=== PATIENT | female | born 1995 | race American Indian/Alaskan Native ===

== ENCOUNTER 2019-02-26 11:25 | Emergency (ER) | payer MEDICAID ==
[2019-02-26 11:33] VITALS: BP 135/84
--- NOTE | 2019-02-26 11:33 | Event Note ---
ED Screening Note ED Screening Note: LNMP dec 2nd states she is 10 weeks CERTIFIED [employer] at [facility] vaginal bleeding lower abd discomfort 1st This initial assessment/diagnostic orders/clinical plan/treatment(s) is/are subject to change based on patients health status, clinical progression and re- assessment by fellow clinical providers in the ED. Further treatment and workup at subsequent clinical providers discretion. Patient/guardian urged not to elope from the ED as their condition may be serious if not clinically assessed and managed. Initial orders include: labs, UA, US
[2019-02-26 12:12] LABS: Hematocrit 36.4 % (30.3-42.9); Hemoglobin 12.1 gm/dl (10.1-14.3); Mean Corpuscular HGB Conc 33 % (30-34); Mean Corpuscular Volume 79 fl (79-97); Platelet Count 295 K/mm3 (140-440); Red Blood Count 4.63 M/mm3 (3.65-5.03); Red Cell Distribution Width 19.2 % (13.2-15.2)
[2019-02-26 12:13] LABS: Bacteria,Urine 1+ /HPF (Negative); Bilirubin,Urine NEG (Negative); Blood,Urine LG (Negative); Color,Urine Yellow (Yellow); Mucus,Urine 3+ /HPF
[2019-02-26] MEDS ORDERED: ACETAMINOPHEN 500 MG TAB PO ONE (12:36)
--- NOTE | 2019-02-26 12:37 | Emergency Department Report ---
ED Female HPI - General Chief complaint: Vaginal Bleeding Stated complaint: VAGINAL BLEEDING Time Seen by Provider: 02/26/19 11:30 Source: patient, EMS Mode of arrival: Ambulatory Limitations: No Limitations - History of Present Illness Initial comments: Asmita is a healthy 23 yo female who currently 10 weeks . She presents with mild vaginal bleeding and pelvic cramping. YISSEL September 21, 2019 gradual onset of symptoms this morning. No change of movement. No radiation. Mild pelvic cramping. MD Complaint: vaginal bleeding, pelvic pain -: Gradual, This morning Severity: mild Quality: cramping Consistency: constant Improves with: none Worsens with: none Are you Now?: Yes - Related Data Allergies Allergy/AdvReac Type Severity Reaction Status Date / Time No Known Allergies Allergy Unverified 02/26/19 11:27 ED Review of Systems ROS: Stated complaint: VAGINAL BLEEDING Other details as noted in HPI Comment: All other systems reviewed and negative Constitutional: denies: fever, malaise Cardiovascular: denies: chest pain Gastrointestinal: abdominal pain. denies: nausea, vomiting ED Past Medical Hx - Past Medical History Previous Medical History?: No - Surgical History Additional Surgical History: CHOLEAR IMPLANT - Social History Smoking Status: Never Smoker Substance Use Type: None ED Physical Exam - General Limitations: No Limitations General appearance: alert, in no apparent distress, other (appears comfortable in no acute distress) - Head Head exam: Present: atraumatic, normocephalic - Eye Eye exam: Present: normal appearance - ENT ENT exam: Present: mucous membranes moist - Neck Neck exam: Present: normal inspection, full ROM - Respiratory Respiratory exam: Present: normal lung sounds bilaterally. Absent: respiratory distress, wheezes, rales, rhonchi - Cardiovascular Cardiovascular Exam: Present: regular rate, normal rhythm, normal heart sounds. Absent: systolic murmur, diastolic murmur, rubs, gallop - GI/Abdominal GI/Abdominal exam: Present: soft, normal bowel sounds. Absent: distended, tenderness, guarding, rebound - Extremities Exam Extremities exam: Present: normal inspection - Neurological Exam Neurological exam: Present: alert, oriented X3 - Psychiatric Psychiatric exam: Present: normal affect, normal mood - Skin Skin exam: Present: warm, dry, intact, normal color. Absent: rash ED Course Vital Signs 02/26/19 11:32 Temperature 98.7 F Pulse Rate 113 H Respiratory 16 Rate Blood Pressure 135/84 O2 Sat by Pulse 99 Oximetry ED Medical Decision Making - Lab Data Result diagrams: 02/26/19 12:02 - Medical Decision Making Asmita presents with threatened miscarriage at 10 weeks gestation. Ultrasound reveals viable intrauterine with moderate subchorionic bleeding. heart tones are 164 bpm. CBC within normal limits. Urinalysis c ontaminated with blood. Blood type Rh+. I provided return precautions and supportive contractions. Recommended pelvic rest. Critical care attestation.: If time is entered above; I have spent that time in minutes in the direct care of this critically ill patient, excluding procedure time. ED Disposition Clinical Impression: Threatened miscarriage Disposition: DC-01 TO HOME OR SELFCARE Is pt being admited?: No Does the pt Need Aspirin: No Condition: Stable Instructions: Threatened Miscarriage (ED) Referrals: PRIMARY CARE, [Referring] - 3-5 Days
--- NOTE | 2019-02-26 12:37 | Ultrasound Report ---
Obstetrical ultrasound. 02/26/2019. HISTORY: Vaginal bleeding. FINDINGS: The uterus measures 10.5 x 6 x 8.1 cm. A single viable intrauterine is dated 10 w eeks 6 days. heart tones are 164 bpm. A subchorionic bleed is moderate in size. Right ovary measures 2 x 1.2 x 1.1 cm. Left ovary measures 2.1 x 1.4 x 2.1 cm. A 1.1 cm complex cyst is present. The ovaries demonstrate flow. Negative for adnexal fluid. IMPRESSION: 1. Viable intrauterine dated 10 weeks 6 days. 2. Moderate subchorionic bleed. 3. Adnexa are unremarkable. Signer Name: Frank Smalls MD Signed: 02/26/2019 12:33 PM Workstation Name: [id number]
== END 2019-02-26 13:11 | disposition home or self-care (01) ==
LOC: ED 11:25
DX: O20.0 Threatened abortion (principal); Z3A.10 10 weeks gestation of pregnancy
CPT/HCPCS: 36415; 76801; 81001; 84702; 85027; 86900; 86901; 87086